=== PATIENT | male | born 2000 | race Hispanic/Latino ===

== ENCOUNTER 2022-11-08 13:32 | Emergency (ER) | payer OTHER ==
[~2022-11-08] VITALS: Ht 170.2 cm; Wt 68.0 kg
[2022-11-08] MEDS ORDERED: CEPH500B PO (18:52)
[2022-11-08] MEDS ORDERED: IBUP-2070 PO (18:52)
[2022-11-08 18:54] VITALS: BP 130/78
== END 2022-11-08 19:02 | disposition home or self-care (01) ==
LOC: EDH 13:32
DX: S91.312A Laceration without foreign body, left foot, initial encounter (principal); W01.0XXA Fall on same level from slipping, tripping and stumbling without subsequent striking against object, initial encounter; Y93.01 Activity, walking, marching and hiking; Y92.89 Other specified places as the place of occurrence of the external cause; Y99.8 Other external cause status
CPT/HCPCS: 12002; 73620